=== PATIENT | female | born 1985 | race Caucasian/White ===

== ENCOUNTER 2019-09-16 03:04 | Emergency (ER) | payer SELFPAY ==
[2019-09-16 03:09] VITALS: BP 144/79; PULSE 132; RESP 15; TEMP 36.8; O2SAT 100
--- NOTE | 2019-09-16 03:10 | ED.ABDPAIN ---
HPI - Abdominal Pain General Chief Complaint: Abdominal Pain Stated Complaint: Feel like appendix is going to rupture Time Seen by Provider: 09/16/19 03:10 Source: patient and family Mode of arrival: ambulatory Limitations: no limitations History of Present Illness HPI narrative: Patient is a 34-year-old female who presents for evaluation of right-sided flank pain. Patient reports acute onset of right-sided lower back pain that occurred while the patient was in a car. Patient states that they have been driving many hours, reports pain is sharp, stabbing in nature, worsened with movement. There is radiation of the pain down the back of her bottom into her leg. No associated numbness or weakness in the right leg. No right upper or right lower abdominal pain. No fever, nausea or vomiting. Patient does not have a history of kidney stones. She does have a history of urinary tract infections. She has noted some dysuria recently, no hematuria or frequency. No history of lower back injury, no recent heavy lifting. Related Data Allergies Allergy/AdvReac Type Severity Reaction Status Date / Time povidone-iodine Allergy Severe SWELLING Verified 09/16/19 03:12 iodine Allergy Mild Swelling Verified 09/16/19 03:12 Penicillins Allergy Unknown Verified 09/16/19 03:12 bee stings Allergy Mild Anaphylactic Uncoded 09/16/19 03:12 Shock Review of Systems Review of Systems: Narrative: CONSTITUTIONAL: Denies fever, chills, or sweats. CARDIOVASCULAR: Denies chest pain RESPIRATORY: Denies cough or dyspnea. GASTROINTESTINAL: Denies abdominal pain, nausea, vomiting, or diarrhea. GENITOURINARY: Denies dysuria or hematuria. SKIN: Denies rash or itching. MUSCULOSKELETAL: Reports right-sided flank pain, denies myalgias NEUROLOGIC: Denies headache, numbness, or weakness. PSYCHIATRIC: Reports history of anxiety PMFSH Past Medical History Medical History (Updated 09/16/19 @ 03:34 by Nayely Hunter MD) Anxiety Depression Surgical History Surgical History (Updated 09/16/19 @ 03:12 by Nayely Hunter MD) History of vacuum extraction assisted delivery Social History Social History (Updated 09/16/19 @ 03:13 by Nayely Hunter MD) Smoking status: Current every day smoker Tobacco type: cigarettes Alcohol intake: current Substance use: never Living arrangements: with family Gender identity (if verbalized by the patient): Female Exam Narrative: Exam Narrative: GENERAL: Awake, alert, conversant HEAD: Normocephalic, atraumatic. EYES: PERRLA and EOMI. ENT: Nares clear, no rhinorrhea or epistaxis. Mucous membranes moist. NECK: Supple. CHEST: No respiratory distress, breathing even and non labored HEART: Tachycardic rate, sinus rhythm ABDOMEN:Non distended, non tender, no focal right upper quadrant or right lower quadrant tenderness, no rebound, no guarding, negative Rovsing sign. Negative Christine sign. Thorax: Right sided lumbar paraspinal tenderness, tenderness over the SI joint that exactly reproduces pain, no midline pain EXTREMITIES: Normal range of motion. No edema. SKIN: Warm, dry, no rash. NEURO:No focal deficits. Alert and oriented x3, ambulatory with a narrow base, steady gait, no ataxia. Normal EHL/FHL. Course Vital Signs Vital signs: Vital Signs Temperature 36.8 C 09/16/19 03:09 Pulse Rate 132 H 09/16/19 03:09 Respiratory Rate 15 09/16/19 03:09 Blood Pressure 144/79 H 09/16/19 03:09 Pulse Oximetry 100 09/16/19 03:09 Temperature 36.7 C 09/16/19 03:39 Pulse Rate 73 09/16/19 03:39 Respiratory Rate 16 09/16/19 03:39 Blood Pressure 121/76 09/16/19 03:39 Pulse Oximetry 97 09/16/19 03:39 MDM - Abdominal Pain MDM Narrative Medical decision making narrative: Patient presented for evaluation of right-sided lower back pain with acute onset prior to arrival. On exam, patient is mildly tachycardic, very stressed. She has exactly reproducible right-sided thoracic pain without any
--- NOTE | 2019-09-16 03:38 | PC.NURSE ---
pt refused all meds and testing, stated could not afford it. MD at bedside.
[2019-09-16 03:39] VITALS: BP 121/76; PULSE 73; RESP 16; TEMP 36.7; O2SAT 97
== END 2019-09-16 04:06 | disposition home or self-care (01) ==
LOC: ANHED 03:51
PROVIDERS: Emergency Provider Emergency Medicine
DX: M62.830 Muscle spasm of back (principal); F17.210 Nicotine dependence, cigarettes, uncomplicated
CPT/HCPCS: 99283

== ENCOUNTER 2020-02-09 21:35 | Emergency (ER) | payer SELFPAY ==
[2020-02-09] VITALS (13 sets, daily range): BP systolic 105–120; BP diastolic 71–84; PULSE 74–110; RESP 7–16; TEMP 36.6; O2SAT 83–100
--- NOTE | ~2020-02-09 | XR_ITS ---
XR chest 1V portable DATE: 02/09/2020 22:13 INDICATION: Hypoxia. Overdose. TECHNIQUE: Portable upright AP chest on 02/09/2020 at 2215 hours COMPARISON: None FINDINGS: Normal heart size. No hilar or mediastinal enlargement. No pulmonary infiltrate or consolid ation, pleural effusion or pulmonary vascular congestion or pneumothorax. Included skeletal structure s are unremarkable. IMPRESSION: No active cardiopulmonary disease Reviewed, dictated and finalized at location [facility]
--- NOTE | 2020-02-09 22:03 | ECG_ITS ---
Measurements Intervals [place] Rate: 93 P: 75 FL: 117 QRS: 69 QRSD: 85 T: 55 QT: 363 QTc: 453 Interpretive Statements SINUS RHYTHM WITH SHORT FL INTERVAL BORDERLINE ECG Electronically Signed On 02-10-2020 8:39:14 [employer]ANDLE WRAPPING MACHINE OPERATOR by Herman Lehman D.O.
--- NOTE | 2020-02-09 22:11 | PC.NURSE ---
patient more lethargic. slower to arouse to verbal stimuli. sternal rub done several times now by this RN and electro mechanical solar technician. Charge Nurse aware. no order for Narcan given yet.
--- NOTE | 2020-02-09 22:25 | PC.NURSE ---
patient given Narcan as ordered. patient immediately awake and thrashing in bed. oriented but unable to redirect at times. pulled IV out. pulling monitors out. aware. additional staff to room to help control patient from harming herself. patient more relaxed and cooperative after approximately 5 minutes. feels better. attempted to restart IV in left forearm. unsuccessful. patient also need straight cath. Bri COAMPO to room to attempt IV access.
[2020-02-09] MEDS: NALOXONE HCL 0.4 MG/ML VIAL IV PUSH (22:36)
--- NOTE | 2020-02-09 23:02 | PC.NURSE ---
resting on stretcher. states she is more aware of the events of tonight. states she was at home when she was using. they could not find the narcan they have at home. did not remember that her boyfriend dropped her off here. states she does have 3 kids. denies any pain at this time. cold. additional blankets given. ice chips given. has call light in reach.
[2020-02-09 23:03] LABS: Basophils Percent Auto 0.4 % (0.2-1.2); Eosinophils Absolute Auto 0.1 K/mm3 (0-0.3); Eosinophils Percent Auto 1.7 % (0-4.4); Hematocrit 36.3 % (37.0-47.0); Hemoglobin 12.1 g/dL (12.0-15.0); Immature Granulocyte Absolute 0.02 K/mm3 (0.00-0.031); Immature Granulocyte Percent A 0.2 % (0-0.5); Lymphocytes Absolute Auto 2.95 K/mm3 (0.9-3.2); Lymphocytes Percent Auto 36.6 % (18.3-44.2); Mean Corpuscular HGB Conc 33.3 g/dl (32-36); Mean Corpuscular Hemoglobin 30.3 pg (26-34); Mean Platelet Volume 9.5 fl (7.4-10.4); Monocytes Absolute Auto 0.9 K/mm3 (0.1-0.6); Monocytes Percent Auto 11.6 % (2.6-8.5); Neutrophils Percent Auto 49.5 % (45.5-73.1); Platelet Count Result 232 k/mm3 (150-375); Red Blood Count 3.99 M/mm3 (4.2-5.4); Red Cell Distribution Width 11.8 % (11.5-14.5); White Blood Count 8.1 K/mm3 (4.5-10.0)
[2020-02-09 23:04] LABS: Ethanol < 10 mg/dL (<10)
[2020-02-09 23:05] LABS: Alanine Aminotransferase 344 U/L (4-35); Albumin Level 4.3 g/dL (3.5-5.1); Alkaline Phosphatase 137 U/L (38-126); Anion Gap 7 mmol/L (8-16); Aspartate Amino Transferase 245 U/L (14-36); Bilirubin,Total 1.1 mg/dL (0.2-1.3); Blood Urea Nitrogen 11 mg/dL (7-17); Calcium 8.7 mg/dL (8.4-10.2); Carbon Dioxide 32 mmol/L (22-30); Chloride 102 mmol/L (98-107); Estimated CRCL calculation 87 ml/min; Estimated Glomerular Filt Rate > 60; Glucose 81 mg/dL (65-105); Potassium 3.7 mmol/L (3.4-5.0); Sodium 141 mmol/L (137-145)
--- NOTE | 2020-02-09 23:09 | PC.NURSE ---
report given to Malena OCAMPO.
--- NOTE | 2020-02-09 23:23 | PC.NURSE ---
Assumed care of pt. at this time. Report from DAMARIS Monsivais.
--- NOTE | 2020-02-09 23:24 | PC.NURSE ---
Pt. asked to urinate. states she cannot void at this time.
[2020-02-10 00:16] VITALS: BP 104/82; PULSE 83; RESP 12; O2SAT 99
--- NOTE | 2020-02-10 00:17 | ED.OVERDOSE ---
HPI - Overdose General Chief Complaint: Overdose Stated Complaint: needs narcan Time Seen by Provider: 02/09/20 21:47 Source: patient Mode of arrival: ambulatory Limitations: intoxication History of Present Illness HPI Narrative: This patient is a 34 year old female who presents for evaluation of possible accidental heroin overdose. Patient states that she injected heroin before arrival to ER. She was brought in by her who states patient possibly needed narcan. Patient reports being tired. She states she uses heroin daily and she has needed narcan in the past. She denies alcohol use or any other illicit drug use . complaint: accidental overdose Related Data Allergies Allergy/AdvReac Type Severity Reaction Status Date / Time povidone-iodine Allergy Severe SWELLING Verified 02/09/20 22:39 iodine Allergy Mild Swelling Verified 02/09/20 22:39 Penicillins Allergy Unknown Verified 02/09/20 22:39 bee stings Allergy Mild Anaphylactic Uncoded 02/09/20 22:39 Shock Review of Systems Review of Systems: ROS unobtainable: Yes other (intoxication) [facility] Past Medical History Medical History Anxiety Depression Surgical History Surgical History History of vacuum extraction assisted delivery Social History Social History (Updated 09/16/19 @ 03:13 by Nayely Hunter MD) Smoking status: Current every day smoker Tobacco type: cigarettes Alcohol intake: current Substance use: never Gender identity (if verbalized by the patient): Female Exam Const: General: No diaphoretic Nutritional Appearance: thin Other: lethargic , arousable with verbal stimuli HENMT: Head: normocephalic and atraumatic Face and sinus: face symmetric Mouth: Yes Normal oral and palatal mucosa present, Yes lip normal, Yes oropharynx normal and Yes moist mucous membranes Throat: posterior oropharynx normal, tonsils normal and uvula midline Eyes: EOM: EOMs intact bilaterally Chest: Chest palpation & inspection: normal inspection of the chest Resp: Effort & Inspection: normal respiratory effort, not labored, no retractions and not tachypneic Auscultation: clear to auscultation bilaterally Cardio: Rate: regular rate Rhythm: regular rhythm Heart sounds: no murmurs GI: GI Palp: Yes Soft to palpation, No Tenderness to palpation present (GI), No Guarding due to palpation present (GI) and No Rigid due to palpation Skin: General skin exam: normal color Rashes: no rashes Neuro: General: patient oriented x3 and moves all extremities Course Reevaluation(s) Reevaluation #1: PAtient is awake, alert and oriented x 3. She is talking to her family. She reports she feels much better. I discussed that LFTs are elevated and she states she has hepatitis C. Date: 02/10/20 Time: 00:17 Reevaluation #2: PAtient has no complaints. She is 100 % on room air. Date: 02/10/20 Time: 01:11 Vital Signs Vital signs: Vital Signs Temperature 97.8 F 02/09/20 21:50 Pulse Rate 86 02/09/20 21:50 Respiratory Rate 8 L 02/09/20 21:50 Blood Pressure 111/72 02/09/20 21:50 Pulse Oximetry 84 L 02/09/20 21:50 Temperature 97.8 F 02/09/20 21:50 Pulse Rate 88 02/10/20 01:40 Respiratory Rate 13 02/10/20 01:40 Blood Pressure 106/69 02/10/20 01:40 Pulse Oximetry 97 02/10/20 01:40 MDM - Overdose Lab Data Attestation: I reviewed the patient's lab results. Result diagrams: 02/09/20 22:54 02/09/20 22:47 Labs: Lab Results 02/09/20 02/09/20 02/09/20 Range/Units 22:47 22:47 22:54 WBC 8.1 (4.5-10.0) K/mm3 RBC 3.99 L (4.2-5.4) M/mm3 Hgb 12.1 (12.0-15.0) g/dL Hct 36.3 L (37.0-47.0) % MCV 91.0 (80-100) fl MCH 30.3 (26-34) pg MCHC 33.3 (32-36) g/dl RDW 11.8 (11.5-14.5) % Plt Count 232 (150-375) k/mm3 MPV 9.5 (7.4-10.4)
[2020-02-10] MEDS: ONDANSETRON HCL ODT 4 MG TABLET PO (00:27)
[2020-02-10 01:34] LABS: Add Urine Microscopic? YES; Appearance Urine Cloudy (Clear); Bacteria Urine Trace /hpf; Bilirubin Urine 1+ (Negative); Blood Urine Negative (Negative); Calcium Oxalate Crystals Urine Many /hpf; Color Urine Amber (Yellow); Glucose Urine UA Negative (Negative); Ketones Urine Negative (Negative); Leukocyte Esterase Ur Negative LEU/UL (Negative); Mucus Urine Heavy /lpf; Nitrate Urine Negative (Negative); Protein Urine 1+ mg/dL (Negative); Squamous Epithelial Cell Urine Few /hpf (Few); WBC Urine 0-3 /hpf
[2020-02-10 01:37] LABS: Specific Grav Ur 1.031 (1.001-1.035)
[2020-02-10 01:40] VITALS: BP 106/69; PULSE 88; RESP 13; O2SAT 97
[2020-02-10 01:45] LABS: Barbiturate Screen Urine Negative (Negative); Benzodiazepines Screen Urine Negative (Negative)
[2020-02-10 01:46] LABS: Cannabinoid Screen Urine Positive (Negative); Cocaine Screen Urine Negative (Negative); Methadone Screen Urine Negative (Negative); Opiate Screen Urine Negative (Negative); Phencyclidine Screen Urine Negative (Negative)
[2020-02-10 02:02] LABS: Amphetamine Screen Urine Positive (Negative)
== END 2020-02-10 01:40 | disposition home or self-care (01) ==
PROVIDERS: Emergency Provider General Practice
DX: T40.1X1A Poisoning by heroin, accidental (unintentional), initial encounter (principal); R79.89 Other specified abnormal findings of blood chemistry; F17.210 Nicotine dependence, cigarettes, uncomplicated; F41.9 Anxiety disorder, unspecified; F32.9 Major depressive disorder, single episode, unspecified
CPT/HCPCS: 36415; 71045; 80053; 80307; 81001; 81025; 85025; 93005; 96374; 99284; A9270; J2310